=== PATIENT | male | born 1990 | race Caucasian/White ===

== ENCOUNTER 2016-07-11 19:57 | Emergency (ER) | payer OTHER ==
[~2016-07-11] VITALS: Ht 182.9 cm; Wt 104.3 kg
[~2016-07-11 19:57] MED LIST: NORVASC 10MG10 MG PO
--- NOTE | 2016-07-11 21:05 | ED UPPER/LOWER EXTREMITY COMPL ---
History of Present Illness General Chief Complaint: Laceration Procedure Stated Complaint: PT CUT HIS RT LEG OPEN Source: patient, old records Exam Limitations: no limitations Vital Signs & Intake/Output Vital Signs & Intake/Output Vital Signs Date Time Temp Pulse Resp B/P B/P Pulse O2 O2 Flow FiO2 Mean Ox Delivery Rate 07/11 2138 97.5 74 16 154/90 97 Room Air 07/11 2008 97.9 100 18 182/110 99 Room Air ED Intake and Output 07/12 0000 07/11 1200 Intake Total Output Total Balance Patient 230 lb Weight Allergies Coded Allergies: NO KNOWN ALLERGIES (02/04/11) Reconcile Medications Hydrochlorothiazide 25 MG TABLET 1 TAB PO DAILY htn Triage Note: PT TO ER STATES THAT HE WAS CUTTING A BOX WHEN HE SLIPPED WITH KNIFE CUTTING HIS R UPPER INNER THIGH, PT NOTED WITH LAC. PT NOTED WITH ELEVATED BP AT TRIAGE MANUAL BP 186/110 PT STATES THAT HE ALWAYS HAS HIGH BP AND THAT HE DOES NOT TAKE MEDS Triage Nurses Notes Reviewed? yes Onset: Abrupt Duration: hour(s): (1), constant Timing: recent history Severity: mild Severity Numbers: 5 Pain/Injury Location: Right: Leg. Method of Injury: laceration No Modifying Factors: none Associated Symptoms: none HPI: 25-year-old male presents to ER for evaluation status post sustaining laceration to his right thigh while cutting boxes with a knife he states the knife slipped sustaining laceration. He is up-to-date on his tetanus he denies any other complaints pain is mild to moderate aching. Nonradiating he has not taken anything for symptoms is declining anything when offered. On arrival patient is noted be hypertensive he states he has a history of hypertension however was noncompliant with the medication he was prescribed the past due to insurance reasons however states today he will get a prescription filled if I provide one. Denies headache chest pain shortness of breath (RACH VILLARREAL) Past History Travel History Traveled to [place] past 21 day No Medical History Any Pertinent Medical History? see below for history Neurological: migraine EENT: NONE Cardiovascular: hypertension Respiratory: NONE Gastrointestinal: NONE Hepatic: NONE Renal: NONE Musculoskeletal: NONE Psychiatric: NONE Endocrine: NONE Surgical History Surgical History: non-contributory Psychosocial History What is your primary language Wolof Tobacco Use: Never used ETOH Use: denies use Illicit Drug Use: denies illicit drug use Family History Hx Contributory? No (RACH VILLARREAL) Review of Systems Review of Systems Constitutional: Reports: see HPI. All Other Systems: Reviewed and Negative Comments Review of systems: See HPI, All other systems negative. Constitutional, no chills no fever, no malaise HEENT: no sore throat no congestion, no ear pain Cardiovascular: No chest pain , no palpitation , no orthopnea Skin: no rashes, no change in skin Respiratory: No dyspnea no cough no sputums GI: No nausea no vomiting, no diarrhea, no bloating/constipation Muscle skeletal: No joint pain, no joint swelling, no back pain, no neck pain, Neurologic: no headache Psych: No stress Heme/endocrine: No bruising no bleeding Immunology: No lymphadenopathy (RACH VILLARREAL) Physical Exam Physical Exam General Appearance: well developed/nourished, no apparent distress, alert, awake Comments: Well-developed well-nourished patient in no apparent distress. HEENT: Atraumatic, extraocular motion intact Neck: Supple, FROM Back: FROM Respiratory: No respiratory distress. Patient speaking in full complete sentences. Breath sounds clear to auscultation bilaterally Extremities: 2 cm linear laceration noted over the anterior right upper thigh no active bleeding no tendon injury no visualized palpated foreign body noted full range of motion Neuro: awake, alert, and oriented to person, place and time. There were no obvious focal neurologic abnormalities. Skin: Warm & dry;No appreciable rash on exposed skin Psych: Mood affect normal, normal memory normal judgment. (RACH VILLARREAL) Progress Differential Diagnosis: sprain, tendon injury, laceration Plan of Care: Current Medications Sig/Jimbo Start time Last Medication Dose Stop Time Status Admin Lidocaine 20 ML ONCE ONE 07/11 2114 UNVr (Lidocaine 1%) 07/12 2115 Wound thoroughly irrigated normal saline Betadine peroxide and anesthetized with lidocaine 1%, sutures 4 placed by me discussed with the patient risks and harms of his elevated blood pressure, patient is right with information from primary care advised to purchase a home blood pressure cuff to monitor his blood pressure per prescription for hydrochlorothiazide prevented I answered all his questions. Return precautions were discussed with the patient leaves he will return in 7 days for suture removal (RACH VILLARREAL) Departure Departure Time of Disposition: 2106 Disposition: HOME OR SELF CARE Condition: Stable Clinical Impression Primary Impression: Laceration Secondary Impressions: HTN (hypertension) Referrals: PATIENT HAS NO PRIMARY CARE DR (PCP/Family) VIDAL PAYAN,PALMA Additional Instructions: Follow up with pmd dr mercado this week regarding your elevated blood pressure. hydrochlorothiazide as directed. this was sent to [facility] Keep area clean and covered as discussed, bacitracin daily. Return to ER in 7- 10 days for suture removal. Please understand that foreign bodies such as glass or wood may not be visible to the naked eye or on plain x-rays. If the wound becomes red, swollen, increasingly more painful or if there is any drainage from the wound, please have it reevaluated by a physician for the possibility of a retained foreign body. Departure Forms: Customer Survey General Discharge Information Prescriptions: Current Visit Scripts Hydrochlorothiazide 1 TAB PO DAILY #30 TAB (RACH VILLARREAL) PA/LEADLIGHTER Co-Sign Statement Statement: ED Attending supervision documentation- [] I saw and evaluated the patient. I have also reviewed all the pertinent lab results and diagnostic results. I agree with the findings and the plan of care as documented in the PA's/LEADLIGHTER's documentation. [X] I have reviewed the ED Record and agree with the PA's/LEADLIGHTER's documentation. [] Additions or exceptions (if any) to the PAs/LEADLIGHTER's note and plan are summarized below: [] (LAUREN PAYAN,SAMARA Dean) Procedures Laceration/Wound Repair Laceration/Wound Repair: Wound Location: rle Wound's Depth, Shape: linear, superficial Wound Length (cm): 2 Wound Explored: clean, irrigated extensively Irrigated w/ Saline (ccs): 200 Betadine Prep? Yes Anesthesia: 1% lidocaine Volume Anesthetic (ccs): 6 Wound Repaired With: sutures Suture Size/Type: 3:0 Number of Sutures: 4 Layer Closure? No Sterile Dressing Applied: Yes Tetanus Status: up to date (RACH VILLARREAL)
[2016-07-11] MEDS ORDERED: HYDROCHLOROTHIA25 M1 PO (21:29)
[2016-07-11 21:39] VITALS: BP 154/90
== END 2016-07-11 21:30 ==
LOC: ERH 19:57
DX: S71.111A Laceration without foreign body, right thigh, initial encounter (principal); W26.0XXA Contact with knife, initial encounter; Y93.89 Activity, other specified; Y92.9 Unspecified place or not applicable

== ENCOUNTER 2017-03-17 01:29 | Emergency (ER) | payer SELFPAY ==
[~2017-03-17] VITALS: Ht 182.9 cm; Wt 108.9 kg
[~2017-03-17 01:29] MED LIST changes: +HYDROCHLOROTHIA25 M1 PO
--- NOTE | 2017-03-17 01:48 | ED CARDIAC/CP/PALPITATIONS ---
History of Present Illness General Chief Complaint: Chest Pain Stated Complaint: HIGH BP, DIZZINESS ,DOUBLE VISION, CHEST PAIN Source: patient, old records Exam Limitations: no limitations Vital Signs & Intake/Output Vital Signs & Intake/Output Vital Signs Date Time Temp Pulse Resp B/P B/P Pulse O2 O2 Flow FiO2 Mean Ox Delivery Rate 03/17 0301 Room Air 03/17 0158 98.8 101 20 160/102 99 Room Air Allergies Coded Allergies: NO KNOWN ALLERGIES (02/04/11) Reconcile Medications Hydrochlorothiazide 25 MG TABLET 1 TAB PO DAILY htn Triage Nurses Notes Reviewed? yes HPI: Patient presents with nausea and vomiting, chest heaviness, chills, nonproductive cough, lightheadedness for the past 16 hours. The symptoms have been constant. There are no aggravating or mitigating factors. The chest heaviness is constant. There is no radiation. No aggravating or mitigating factors. He rates it as moderate on the scale. Patient denies diarrhea. Patient denies abdominal pain. There is no headache or blurry vision. Past History Travel History Traveled to [place] past 21 day No Medical History Any Pertinent Medical History? see below for history Neurological: migraine EENT: NONE Cardiovascular: hypertension Respiratory: NONE Gastrointestinal: NONE Hepatic: NONE Renal: NONE Musculoskeletal: NONE Psychiatric: NONE Endocrine: NONE Surgical History Surgical History: non-contributory Psychosocial History What is your primary language Spanish Tobacco Use: Never used ETOH Use: occasional use Illicit Drug Use: denies illicit drug use Family History Hx Contributory? No Review of Systems Review of Systems Constitutional: Reports: see HPI, chills, fever. EENTM: Reports: no symptoms. Respiratory: Reports: see HPI, cough. Cardiovascular: Reports: see HPI, chest pain. GI: Reports: see HPI, nausea, vomiting. Genitourinary: Reports: no symptoms. Musculoskeletal: Reports: no symptoms. Skin: Reports: no symptoms. Neurological/Psychological: Reports: no symptoms. Hematologic/Endocrine: Reports: no symptoms. Immunologic/Allergic: Reports: no symptoms. All Other Systems: Reviewed and Negative Physical Exam Physical Exam General Appearance: well developed/nourished, alert, awake, anxious, mild distress Head: atraumatic, normal appearance Eyes: Bilateral: PERRL, EOMI. Ears, Nose, Throat: normal pharynx, normal ENT inspection, hearing grossly normal Neck: normal inspection, supple, full range of motion Respiratory: normal breath sounds, chest non-tender, no respiratory distress, lungs clear Cardiovascular: regular rate/rhythm, normal peripheral pulses Gastrointestinal: normal bowel sounds, soft, non-tender, no organomegaly Back: normal inspection, normal range of motion Extremities: normal inspection, normal capillary refill, normal range of motion, no edema Neurologic/Psych: no motor/sensory deficits, awake, alert, oriented x 3, normal gait, normal mood/affect Skin: intact, normal color, warm/dry Lymphatic: no anterior cervical venus Core Measures ACS in differential dx? No CVA/TIA Diagnosis No Sepsis Present: No Sepsis Focused Exam Completed? No Progress Differential Diagnosis: AMI, cholecystitis, costochondritis, musculoskeletal pain, myocarditis, pancreatitis, pericarditis, pneumonia, pneumothorax Plan of Care: Orders Procedure Date/time Status RAPID VIRAL INFLUENZA A 03/17 145 Complete TROPONIN LEVEL 03/17 145 Complete LIPASE 03/17 145 Complete COMPREHENSIVE METABOLIC PANEL 03/17 145 Complete CBC WITHOUT DIFFERENTIAL 03/17 145 Complete AMYLASE 03/17 145 Complete EKG 03/17 132 Active Laboratory Tests 03/17/17 0153: Anion Gap 16, Estimated GFR > 60, BUN/Creatinine Ratio 14.4, Glucose 93, Calcium 9.6, Total Bilirubin 0.4, AST 23, ALT 43, Alkaline Phosphatase 60, Troponin I < 0.01, Total Protein 7.4, Albumin 4.8, Globulin 2.6, Albumin/Globulin Ratio 1.8, Amylase 49, Lipase 39, CBC w Diff NO MAN DIFF REQ, RBC 5.45, MCV 88.3, MCH 30.3, MCHC 34.3, RDW 12.9, MPV 8.8, Gran % 60.1, Lymphocytes % 32.3, Monocytes % 5.4, Eosinophils % 1.6, Basophils % 0.6, Absolute Granulocytes 6.3, Absolute Lymphocytes 3.4, Absolute Monocytes 0.6, Absolute Eosinophils 0.2, Absolute Basophils 0.1 Microbiology 03/17 153 NASOPHARYN: Influenza Virus A & B Rapid Smear - COMP Diagnostic Imaging: Viewed by Me: Radiology Read. Discussed w/RAD: Radiology Read. CXR Impression: PATIENT: LANIE NEWSOME PRESENT AGE: 26 PATIENT ACCOUNT NO: [id number] : 91 LOCATION: [facility] ORDERING PHYSICIAN: Tato Arcos MD SERVICE DATE: 03/17/17 EXAM TYPE: RAD - XRY-CHEST XRAY, TWO VIEWS EXAMINATION: XR CHEST CLINICAL INFORMATION: Cough, chest pain COMPARISON: None TECHNIQUE: 2 views of the chest were obtained. FINDINGS: No significant abnormality is noted involving the heart, lungs, mediastinum, bony thorax or soft tissues. IMPRESSION: Unremarkable examination. DICTATED BY: Jason Stratton MD DATE/TIME DICTATED:03/17/17223 SAFETY SCIENTIST:WENDY DATE/ TIME TRANSCRIBED:03/17/17223 CONFIDENTIAL, DO NOT COPY WITHOUT APPROPRIATE AUTHORIZATION. <Electronically signed in Other Vendor System> SIGNED BY: Jason Stratton MD 03/17/17227 Initial ED EKG: NSR, no ST T wave changes Prior EKG: unchanged Departure Departure Disposition: HOME OR SELF CARE Condition: Stable Clinical Impression Primary Impression: Viral illness Secondary Impressions: Hypertension Referrals: Patient Has No Primary Care Dr (PCP/Family) Additional Instructions: FOLLOW UP WITH [facility] ABOUT YOU RBLOOD PRESSURE. IT IS VERY IMPORTANT TO GET THAT UNDER CONTROL. RETURN IF SYMPTOMS WORSEN OR FOR ANY CONCERNS Departure Forms: Customer Survey General Discharge Information Critical Care Note Critical Care Note Critical Care Time: non-applicable
[2017-03-17 02:03] LABS: ABSOLUTE BASOPHIL COUNT 0.1 /CUMM (0.0-0.2); ABSOLUTE EOSINOPHIL COUNT 0.2 /CUMM (0.0-0.7); ABSOLUTE GRANULOCYTE CT 6.3 /CUMM (1.4-6.5); ABSOLUTE LYMPH COUNT 3.4 /CUMM (1.2-3.4); ABSOLUTE MONOCYTE COUNT 0.6 /CUMM (0.10-0.60); BASOPHIL % 0.6 % (0.0-2.0); EOSINOPHIL % 1.6 % (0-5); GRANULOCYTE % 60.1 % (42.2-75.2); HEMATOCRIT 48.1 % (42-52); MEAN CORPUSCULAR HGB 30.3 PG (27.0-31.0); MEAN CORPUSCULAR HGB CONC 34.3 G/DL (33.0-37.0); MEAN CORPUSCULAR VOLUME 88.3 FL (80.0-94.0); MEAN PLATELET VOLUME 8.8 FL (7.4-10.4); PLATELET COUNT 249 /CUMM (130-400); RBC DISTRIBUTION WIDTH 12.9 % (11.5-14.5); RED BLOOD CELL CT 5.45 /CUMM (4.70-6.10); WHITE BLOOD CELL COUNT 10.5 /CUMM (4.8-10.8)
--- NOTE | 2017-03-17 02:28 | RADIOLOGY REPORT ---
EXAMINATION: XR CHEST CLINICAL INFORMATION: Cough, chest pain COMPARISON: None TECHNIQUE: 2 views of the chest were obtained. FINDINGS: No significant abnormality is noted involving the heart, lungs, mediastinum, bony thorax or soft tissues. IMPRESSION: Unremarkable examination.
[2017-03-17 03:08] VITALS: BP 158/94
== END 2017-03-17 03:09 ==
LOC: ERH 01:29
PROVIDERS: Emergency Medicine
DX: B34.9 Viral infection, unspecified (principal); I10 Essential (primary) hypertension
CPT/HCPCS: 71046; 87804; 87804-59; 93005; 93010

== ENCOUNTER 2017-03-22 21:01 | Emergency (ER) | payer OTHER ==
--- NOTE | 2017-03-22 21:20 | ED NEURO DEFICIT/STROKE ---
History of Present Illness General Chief Complaint: Neuro Symptoms/ Deficit Stated Complaint: HIGH BLOOD PRESSURE,R ARM NUMBNESS,DIZZY Source: patient Exam Limitations: no limitations Vital Signs & Intake/Output Vital Signs & Intake/Output Vital Signs Date Time Temp Pulse Resp B/P B/P Pulse O2 O2 Flow FiO2 Mean Ox Delivery Rate 03/22 2344 98.9 129 20 132/98 98 Room Air 03/22 2330 98.2 123 30 128/88 98 Room Air 03/22 2315 99.4 126 28 128/90 97 Room Air 03/22 2301 97.9 126 25 134/92 97 Room Air 03/22 2245 99.4 122 30 138/100 98 Room Air 03/229 99.1 123 22 148/86 99 Room Air 03/22 2134 99 Room Air 03/22 2116 140 184/102 03/22 2116 106 18 99 Room Air Allergies Coded Allergies: NO KNOWN ALLERGIES (02/04/11) Triage Note: 26M TO ED WITH RIGHT SIDED HEMIPARESIS, HEADACHE, AND CHEST THROBBING X20 MINS. REPORTS HE HAS HAD THIS IN THE PAST BUT NOT BAD. WAS TOLD IT WAS HIGH BLOOD PRESSRE. SPEECH CLEAR. FOCAL NEUROS INTACT. RIGHT ARM ABLE TO RESIST GRAVITY BUT WEAK, HAND GRASPS WEAK. MINIMAL STRENGTH TO RIGHT LEG Triage Nurses Notes Reviewed? yes Onset: Abrupt Duration: 1.5 hours Timing: single episode today Severity: moderate New Weakness: RUE, RLE Altered Sensations: RUE, LUE Vision Problem? No Glaucoma? No Baseline: alert, oriented x 3 HPI: 26 yo gentleman, h/o hypertension, presents with 1.5 hours of right sided weakness in his arm and leg. He notes that he had difficulty walking suddenly and then also felt weakness in his right arm. He noted mild dizziness. No headache, chest pain, shortness of breath. He had previously been well. Of note, he shares that he had been diagnosed with hypertension many years ago, but had stopped his medications due to losing his insurance. Past History Travel History Traveled to [place] past 21 day No Medical History Any Pertinent Medical History? see below for history Neurological: migraine EENT: NONE Cardiovascular: hypertension Respiratory: NONE Gastrointestinal: NONE Hepatic: NONE Renal: NONE Musculoskeletal: NONE Psychiatric: NONE Endocrine: NONE Blood Disorders: NONE Cancer(s): NONE CITY MANAGER/Reproductive: NONE Surgical History Surgical History: non-contributory Psychosocial History What is your primary language Italian Tobacco Use: Refused to answer Family History Hx Contributory? No Review of Systems Review of Systems Constitutional: Reports: no symptoms. EENTM: Reports: no symptoms. Respiratory: Reports: no symptoms. Cardiovascular: Reports: no symptoms. GI: Reports: no symptoms. Genitourinary: Reports: no symptoms. Musculoskeletal: Reports: no symptoms. Skin: Reports: no symptoms. Neurological/Psychological: Reports: no symptoms. Hematologic/Endocrine: Reports: no symptoms. Immunologic/Allergic: Reports: no symptoms. All Other Systems: Reviewed and Negative Physical Exam Physical Exam General Appearance: well developed/nourished, lethargic, mild distress Head: atraumatic, normal appearance Eyes: Bilateral: normal appearance, PERRL, EOMI. Ears, Nose, Throat: normal ENT inspection, moist mucous membrane Neck: normal inspection, supple, full range of motion Respiratory: normal breath sounds, chest non-tender, no respiratory distress Cardiovascular: regular rate/rhythm Gastrointestinal: normal bowel sounds, soft, non-tender, no organomegaly Back: normal inspection, normal range of motion Extremities: normal range of motion Psychiatric: awake, alert, oriented x 3 Cranial Nerves: normal hearing, normal speech, PERRL Coordination/Gait: antalgic finger-->nose, knee-->ibarra on right. 4/5 strength on right arm and leg. diminished sensation on right arm and leg. DTR's symmetric bilaterally (1+) Motor/Sensory: sensory deficit, weak motor strength RUE, weak motor strength RLE , see above Skin: intact, normal color, warm/dry Core Measures CVA/TIA Diagnosis: Yes NIH Stroke Scale NIH Stroke Scale Response Value Level of Consciousness drowsy 1 LOC Questions answers both correctly 0 LOC Commands obeys both correctly 0 Best Gaze normal 0 Visual Hernadez no visual loss 0 Facial Paresis normal 0 Motor Arm - Left no drift 0 Motor Arm - Right drift 1 Motor Leg - Left no drift 0 Motor Leg - Right drift 1 Limb Ataxia present in two limbs 2 Sensory partial loss 1 Best Language no aphasia 0 Dysarthria mild/mod slurring words 1 Extinction and Inattention no neglect 0 Total 7 Swallow Evaluation Pass Sepsis Present: No Sepsis Focused Exam Completed? No Progress Differential Diagnosis: cva vs tia vs psychogenic vs seizure Plan of Care: Orders Procedure Date/time Status [place], Insertion/Removal/Asses 03/22 2199 Active CULTURE,URINE 03/22 2199 Active TYPE & SCREEN (NOT X-MATCH) 03/22 2158 Complete TROPONIN LEVEL 03/22 2120 Complete PARTIAL THROMBOPLASTIN TIME 03/22 2120 Complete PROTHROMBIN TIME 03/22 2120 Complete ETHANOL 03/22 2120 Complete D-DIMER 03/22 2120 Complete COMPREHENSIVE METABOLIC PANEL 03/22 2120 Complete CBC WITHOUT DIFFERENTIAL 03/22 2120 Complete EKG 03/22 2106 Active Current Medications Sig/Jimbo Start time Last Medication Dose Stop Time Status Admin Alteplase, 8.1 MG BOLUS ONE 03/22 2214 CAN Recombinant 03/22 2215 (Activase 100 MG Inj) Laboratory Tests 03/22/172199: Urine Color Cancelled, Urine Clarity Cancelled, Urine pH Cancelled, Ur Specific [place] Cancelled, Urine Protein Cancelled, Urine Ketones Cancelled, Urine Nitrite Cancelled, Urine Bilirubin Cancelled, Urine Urobilinogen Cancelled, Ur Leukocyte Esterase Cancelled, Ur Microscopic Cancelled, Urine Hemoglobin Cancelled, Urine Glucose Cancelled 03/22/172125: Serum Alcohol Cancelled 03/22/172125: Methadone Screen Cancelled, Barbiturate Screen Cancelled, Ur Phencyclidine Scrn Cancelled, Amphetamines Screen Cancelled, U Benzodiazepines Scrn Cancelled, Urine Cocaine Screen Cancelled, Urine Cannabis Screen Cancelled 03/22/172123: PT 10.1, INR 0.96, APTT 33, D-Dimer High Sensitivty < 200, CBC w Diff NO MAN DIFF REQ, RBC 5.73, MCV 88.8, MCH 30.6, MCHC 34.5, RDW 13.0, MPV 8.9, Gran % 62.3, Lymphocytes % 30.5, Monocytes % 5.4, Eosinophils % 1.1, Basophils % 0.7, Absolute Granulocytes 6.7 H, Absolute Lymphocytes 3.3, Absolute Monocytes 0.6, Absolute Eosinophils 0.1, Absolute Basophils 0.1 03/22/172120: Anion Gap 15, Estimated GFR > 60, BUN/Creatinine Ratio 13.0, Glucose 101 H, Calcium 9.9, Total Bilirubin 0.8, AST 28, ALT 45, Alkaline Phosphatase 61, Troponin I < 0.01, Total Protein 8.1, Albumin 5.1 H, Globulin 3.0, Albumin/ Globulin Ratio 1.7, Serum Alcohol < 10.0 Microbiology 03/22 2201 NASOPHARYN: Influenza Virus A & B Rapid Smear - CAN Cancelled: PT.DISCHARGED. 03/22 2199 URINE ROUT: Urine Culture - ORD Diagnostic Imaging: Viewed by Me: Radiology Read, CT Scan. Discussed w/RAD: Radiology Read, CT Scan. Radiology Impression: PATIENT: LANIE NEWSOME PRESENT AGE: 26 PATIENT ACCOUNT NO: [id number] : 91 LOCATION: ER ORDERING PHYSICIAN: Rusty Mukherjee MD SERVICE DATE: 03/22/17 EXAM TYPE: RAD - XRY-PORTABLE CHEST XRAY EXAMINATION: XR PORTABLE CHEST CLINICAL INFORMATION: CVA. COMPARISON: Chest radiograph 03/17/2017. TECHNIQUE: Portable frontal view of the chest was obtained. FINDINGS: The lungs are clear. No pleural effusion. Cardiomediastinal silhouette and pulmonary vasculature is within normal limits. No acute osseous findings. IMPRESSION: No acute cardiopulmonary disease. DICTATED BY: Alejo Stout MD DATE/TIME DICTATED:12/27 SPOT WASHER:WENDY DATE/TIME TRANSCRIBED:03/22/172245 CONFIDENTIAL, DO NOT COPY WITHOUT APPROPRIATE AUTHORIZATION. <Electronically signed in Other Vendor System> SIGNED BY: Alejo Stout MD 03/22/172249, PATIENT: LANIE NEWSOME PRESENT AGE: 26 PATIENT ACCOUNT NO: [id number] : 91 LOCATION: ER ORDERING PHYSICIAN: Rusty Mukherjee MD SERVICE DATE: 03/22/17 EXAM TYPE: CAT - CT HEAD ANGIOGRAM EXAMINATION: CT ANGIOGRAM HEAD CLINICAL INFORMATION: Right-sided hemiparesis. COMPARISON: CT head without contrast dated earlier on 03/22/2017. TECHNIQUE: Test bolus sequences followed by intravenous administration 125 mL of Optiray 350 intravenous contrast. Helical imaging was performed in the axial plane from the mediastinum to the skull vertex. Delayed postcontrast imaging of the head was also performed. The data was processed at the orthopaedic technologist's workstation for generation of MIP sequences. Three-dimensional volume rendered reformatted images were also generated at an offline 3-D workstation. DLP: 731.78 mGy-cm FINDINGS: CRANIAL CTA: There is normal opacification of the major intracranial vessels. No acute proximal large vessel occlusion, focal flow-limiting stenosis, or saccular intracranial aneurysm is identified. No abnormal parenchymal enhancement or regional oligemia is visualized. Posterior communicating arteries noted on the right. The dural venous sinuses enhance normally with no flow- limiting defect. IMPRESSION: No occlusion, flow-limiting stenosis, aneurysmal dilation or dissection of the intracranial vasculature. DICTATED BY: Alejo Stout MD DATE/TIME DICTATED:03/22/172201 SPOT WASHER:WENDY DATE/TIME TRANSCRIBED:03/22/172201 CONFIDENTIAL, DO NOT COPY WITHOUT APPROPRIATE AUTHORIZATION. <Electronically signed in Other Vendor System> SIGNED BY: Alejo Stout MD 03/22/172207, PATIENT: LANIE NEWSOME PRESENT AGE: 26 PATIENT ACCOUNT NO: [id number] : 91 LOCATION: [facility] ORDERING PHYSICIAN: Forrest Green DO (TBS) SERVICE DATE: 03/22/17 EXAM TYPE: CAT - CT HEAD WO IV CONTRAST EXAMINATION: CT HEAD WITHOUT CONTRAST CLINICAL INFORMATION: Right-sided hemiparesis and concern for stroke. COMPARISON : None available. TECHNIQUE: Contiguous axial imaging was performed from the skull base to vertex without intravenous administration of contrast. DLP: 620.91 mGy-cm FINDINGS: There is no evidence of acute intracranial hemorrhage or territorial infarction. No abnormal mass effect or midline shift is seen. Espinal to white matter differentiation is well preserved. No extra-axial fluid collections are identified. The ventricles are normal in size. There is no abnormal attenuation within the brain parenchyma. The osseous structures and soft tissues are normal. The mastoid air cells and visualized portions of the paranasal sinuses are well aerated. IMPRESSION: No acute intracranial pathology. This result was discussed with Dr. Mukherjee at 9:49 PM on 03/22/2017 and it was ascertained that the content of the report was understood at the time of direct communication. DICTATED BY: Alejo Stout MD DATE/TIME DICTATED:03/22/172140 SPOT WASHER:WENDY DATE/TIME TRANSCRIBED:03/22/172140 CONFIDENTIAL, DO NOT COPY WITHOUT APPROPRIATE AUTHORIZATION. <Electronically signed in Other Vendor System> SIGNED BY: Alejo Stout MD 03/22/172151 Initial ED EKG: SINUS TACH Departure Departure Disposition: OTHER [facility] (ACUTE) Condition: Stable Clinical Impression Primary Impression: CVA (cerebral vascular accident) Referrals: Patient Has No Primary Care Dr (PCP/Family) Departure Forms: Customer Survey General Discharge Information Comments 03/22/17, 21:27.... Pt arrived, stroke alert called immediately... discussed with dr. mckeon 03/22/17, 21:49... discussed with [facility] radiology, non contrast reveals no acute bleed, no stroke visualized. 03/22/17, 22:10... discussed with [facility]rinivas[facility] radiology, dr. mckeon, and patient... pt with stroke score of 7..... all questions answered by patient and family. He meets criteria for tpa and has no contraindications. 03/22/17, 22:52... discussed with dr. armijo who feels more comfortable having the patient go to [facility]. 03/22/17, 23:00... .discussed with dr. marie ([facility] stroke team). pt accepted for transfer to [facility]. Critical Care Note Critical Care Note Critical Care Time: 75-104 min
[2017-03-22 21:34] LABS: ABSOLUTE BASOPHIL COUNT 0.1 /CUMM (0.0-0.2); ABSOLUTE EOSINOPHIL COUNT 0.1 /CUMM (0.0-0.7); ABSOLUTE GRANULOCYTE CT 6.7 /CUMM (1.4-6.5); ABSOLUTE LYMPH COUNT 3.3 /CUMM (1.2-3.4); ABSOLUTE MONOCYTE COUNT 0.6 /CUMM (0.10-0.60); BASOPHIL % 0.7 % (0.0-2.0); EOSINOPHIL % 1.1 % (0-5); GRANULOCYTE % 62.3 % (42.2-75.2); HEMATOCRIT 50.9 % (42-52); MEAN CORPUSCULAR HGB 30.6 PG (27.0-31.0); MEAN CORPUSCULAR HGB CONC 34.5 G/DL (33.0-37.0); MEAN CORPUSCULAR VOLUME 88.8 FL (80.0-94.0); MEAN PLATELET VOLUME 8.9 FL (7.4-10.4); PLATELET COUNT 286 /CUMM (130-400); RED BLOOD CELL CT 5.73 /CUMM (4.70-6.10); WHITE BLOOD CELL COUNT 10.7 /CUMM (4.8-10.8)
[2017-03-22 21:43] LABS: PT 10.1 SEC (9.4-12.5); PTT 33 SEC (25-37)
--- NOTE | 2017-03-22 21:52 | CT SCAN REPORT ---
EXAMINATION: CT HEAD WITHOUT CONTRAST CLINICAL INFORMATION: Right-sided hemiparesis and concern for stroke. COMPARISON: None available. TECHNIQUE: Contiguous axial imaging was performed from the skull base to vertex without intravenous administration of contrast. DLP: 620.91 mGy-cm FINDINGS: There is no evidence of acute intracranial hemorrhage or territorial infarction. No abnormal mass effect or midline shift is seen. Espinal to white matter differentiation is well preserved. No extra-axial fluid collections are identified. The ventricles are normal in size. There is no abnormal attenuation within the brain parenchyma. The osseous structures and soft tissues are normal. The mastoid air cells and visualized portions of the paranasal sinuses are well aerated. IMPRESSION: No acute intracranial pathology. This result was discussed with Dr. Mukherjee at 9:49 PM on 03/22/2017 and it was ascertained that the content of the report was understood at the time of direct communication.
--- NOTE | 2017-03-22 22:08 | CT SCAN REPORT ---
EXAMINATION: CT ANGIOGRAM HEAD CLINICAL INFORMATION: Right-sided hemiparesis. COMPARISON: CT head without contrast dated earlier on 03/22/2017. TECHNIQUE: Test bolus sequences followed by intravenous administration 125 mL of Optiray 350 intravenous contrast. Helical imaging was performed in the axial plane from the mediastinum to the skull vertex. Delayed postcontrast imaging of the head was also performed. The data was processed at the research technologist's workstation for generation of MIP sequences. Three-dimensional volume rendered reformatted images were also generated at an offline 3-D workstation. DLP: 731.78 mGy-cm FINDINGS: CRANIAL CTA: There is normal opacification of the major intracranial vessels. No acute proximal large vessel occlusion, focal flow-limiting stenosis, or saccular intracranial aneurysm is identified. No abnormal parenchymal enhancement or regional oligemia is visualized. Posterior communicating arteries noted on the right. The dural venous sinuses enhance normally with no flow-limiting defect. IMPRESSION: No occlusion, flow-limiting stenosis, aneurysmal dilation or dissection of the intracranial vasculature.
--- NOTE | 2017-03-22 22:50 | RADIOLOGY REPORT ---
EXAMINATION: XR PORTABLE CHEST CLINICAL INFORMATION: CVA. COMPARISON: Chest radiograph 03/17/2017. TECHNIQUE: Portable frontal view of the chest was obtained. FINDINGS: The lungs are clear. No pleural effusion. Cardiomediastinal silhouette and pulmonary vasculature is within normal limits. No acute osseous findings. IMPRESSION: No acute cardiopulmonary disease.
[2017-03-22 23:45] VITALS: BP 132/98
== END 2017-03-22 23:58 | disposition short-term general hospital (02) ==
LOC: ERH 21:01
PROVIDERS: Pediatrics
DX: I63.9 Cerebral infarction, unspecified (principal)
CPT/HCPCS: 71045; 80307; 87086; 87804; 87804-59; 93005; 93010; 96374; 99291; G0480